=== PATIENT | female | born 1995 | race Caucasian/White ===

== ENCOUNTER 2018-06-21 09:40 | Emergency (ER) | payer OTHER ==
[~2018-06-21] VITALS: Ht 162.6 cm; Wt 78.9 kg
--- OUTSIDE RECORDS SUMMARY | ~2018-06-21 | XMS | Encounter Summary ---
Demographics + + + | Address | [address] [facility] [address] | | | [place] [address] | + + + | Home Phone | | + + + | Preferred Language | Unknown | + + + | Marital Status | Single | + + + | Mosque Affiliation | 1013 | + + + | Race | Unknown | + + + | Ethnic Group | Unknown | + + + Author + + + | Author | [facility] | | | and [place]ana | + + + | Organization | [facility] | | | and [place]ana | + + + | Address | Unknown | + + + | Phone | Unavailable | + + + Support + + + + + | Name | Relationship | Address | Phone | + + + + + | Ritesh Guerra | ECON | [address] | | | | | [place] [address] | | + + + + + | Alyx Montero | ECON | Unknown | | + + + + + | Tae Montero | ECON | Unknown | | + + + + + Care Team Providers + +------+ + | Care Mud Grinder Name | Role | Phone | + +------+ + | No, Physician | PCP | Unavailable | + +------+ + Reason for Visit +--------+ + | Reason | Comments | +--------+ + | Letter | | +--------+ + Encounter Details +--------+ + + + + | Date | Type | Department | Care Team | Description | +--------+ + + + + | 05/12/ | Telephone | [facility] | Jacobo Haq | Letter | | 2018 | | [facility] | MD [address] | | | | | [address] | [address] | | | | | [address], | [place] | | | | | [place] [address] | [address] | | | | | [phone] | [phone] | | | | | | | | +--------+ + + + + Social History + +-------+ +--------+------+ | Tobacco Use | Types | Packs/Day | Years | Date | | | | | Used | | + +-------+ +--------+------+ | Former Smoker | | 1 | 10 | | + +-------+ +--------+------+ + +---+---+---+ | Smokeless Tobacco: | | | | | Never Used | | | | + +---+---+---+ + + +---------+ + | Alcohol Use | Drinks/We | oz/Week | Comments | | | ek | | | + + +---------+ + | No | | | | + + +---------+ + + + + | Sex Assigned at | Date Recorded | | | | + + + | Not on file | | + + + as of this encounter Plan of Treatment +--------+ + + + + | Date | Type | Specialty | Care Team | Description | +--------+ + + + + | 06/27/ | Routine | Obstetrics and | Jacobo Haq | | | 2017 | | Gynecology | MD Rhoda Palacio | | | | | | [address] | | | | | | [place] | | | | | | [address] | | | | | | [phone] | | | | | | | | +--------+ + + + + | 11/25/ | Hospital | Obstetrics | Jacobo Haq | | | 2019 | Encounter | | MD Rhoda Palacio | | | | | | [address] | | | | | | [place] | | | | | | [address] | | | | | | [phone] | | | | | | | | +--------+ + + + + as of this encounter Visit Diagnoses Not on filein this encounter"
--- OUTSIDE RECORDS SUMMARY | ~2018-06-21 | XMS | Encounter Summary ---
Demographics + + + | Address | [address] [facility] [address] | | | [place] [address] | + + + | Home Phone | | + + + | Preferred Language | Unknown | + + + | Marital Status | Single | + + + | Worship Affiliation | 1013 | + + + | Race | Unknown | + + + | Ethnic Group | Unknown | + + + Author + + + | Author | [facility] | | | and Stevenana | + + + | Organization | [facility] | | | and [place]ana [...] [address] | | | | | [place] [address] | | + + + + + | Alyx Reyna | ECON | Unknown | | + + + + + | Tae Reyna | ECON | Unknown | | + + + + + Care Team Providers + +------+ + | Care Director Park Name | Role | Phone | + +------+ + | No, Physician | PCP | Unavailable | + +------+ + Reason for Referral Evaluate & Treat (Routine) +--------+ + + + + + | Status | Reason | Specialty | Diagnoses / | Referred By | Referred To | | | | | Procedures | Contact | Contact | +--------+ + + + + + | Closed | Specialty | | Diagnoses | Severino, | Stew, | | | Services | | , | Jacobo Palacio, | Sharad W, | | | Required | | unspecified | MD [address] | [address] | | | | gestational | [address], | [address] | | | | | age | [address] | [address], | | | | | | [place], [place] | [place] [address] | | | | | | [address] | Phone: | | | | | | Phone: | [phone] | | | | | | [phone] | Fax: | | | | | | Fax: | [phone] | | | | | | [phone] | | +--------+ + + + + + Reason for Visit + + + | Reason | Comments | + + + | Initial | | | Visit | | + + + Encounter Details +--------+ + + + + | Date | Type | Department | Care Team | Description | +--------+ + + + + | 05/10/ | Initial | [facility] | Jacobo Haq | [place]: | | 2018 | | [facility] | [address] | | | | | CL[address] | [address] | | | | | [address], | [place], [place] | | | | | [place] [address] | [address] | | | | | [phone] | [phone] | | | | | | | [...] + + + as of this encounter Last Filed Vital Signs + + + + | Vital Sign | Reading | Time Taken | + + + + | Blood Pressure | 121/76 | 05/10/2018 1605 PDT | + + + + | Pulse | 101 | 05/10/2018 1605 PDT | + + + + | Temperature | - | - | + + + + | Respiratory Rate | 20 | 05/10/2018 1518 PDT | + + + + | Oxygen Saturation | - | - | + + + + | Inhaled Oxygen | - | - | | Concentration | | | + + + + | Weight | 75.8 kg (167 lb) | 05/10/20181517 PDT | + + + + | Height | 162.6 cm (5' 4") | 05/10/20181517 PDT | + + + + | Body Mass Index | 28.67 | 05/10/20181517 PDT | + + + + in this encounter Progress Notes Carolynn Patel RN - 05/10/20181514 PDTUnable to reach pt due to her currently ester ng in rehab. She was informed of her results at her appt last week. 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 in welcome reportedly for 90 days informed pt of risk of malformations and plan mfm usin this encounter Plan of Treatment +--------+ + [...] [place] | | | | | | [address] | | | | | | [phone] | | | | | | | | +--------+ + + + + | 11/25/ | Hospital | Obstetrics | Jacobo Haq | | | 2018 | Encounter | | MD [address] | | | | | | [address] | | | | | | [place] | | | | | | [address] | | | | | | [phone] | | | | | | | | +--------+ + + + + + +--------+ + + | Name | Priori | Associated Diagnoses | Order Schedule | | | ty | | | + +--------+ + + | Perinatology, External - AMB | Routin | , | Ordered: 05/10/2018 | | Referral | e | unspecified | | | | | gestational age | | + +--------+ + + as of this encounter Procedures + +--------+ + + + | Procedure Name | Priori | Date/Time | Associated Diagnosis | Comments | | | ty | | | | + +--------+ + + + | DIAGNOSTIC REPORT - | | 05/12/2018 | | Results for this | | EXTERNAL SCAN | | 0000 PDT | | procedure are in the | | | | | | results section. | + +--------+ + + + | C. TRACHOMATIS AND | Routin | 05/10/2018 | Screening for STD | Results for this | | N. GONORRHOEAE, NAAT | e | 1550 PDT | (sexually | procedure are in the | | ([facility]) | | | transmitted disease) | results section. | + +--------+ + + + | PAP SMEAR | Routin | 05/10/2018 | Screening for | Results for this | | | e | 0000 PDT | cervical cancer | procedure are in the | | | | | | results section. | + +--------+ + + + in this encounter Results Hepatitis C, NAAT, Quant, Reflex (06/10/2018 1547) + + + + + | Component | Value | Ref Range | Performed At | + + + + + | Hepatitis C Ab | NONREACTIVE | | REFERENCE LAB | | | | | [facility] | | | | | [facility] - | | | | | [place] | | | | | [place] | + + + + + | Signal/Cutoff | 0.02Comment: REFERENCE | | REFERENCE LAB | | | RANGE: | | [facility] | | | NONREACTIVE | | [facility] - | | | | | [place] | | | (SIGNAL TO CUTOFF <1.00) | | [place] | | | Test(s) performed | | | | | at: [facility] | | | | | INFECTIOUS | | | | | DISEASE Fritz [place] | | | | | Santy Blunt, | | | | | Medical | | | | | Director [id number] | | | | | [place] | | | | | [facility] | | | | | [place] | | | | | [address] [place] | | | | | #[id number] | | | + + + + + + + | Specimen | + + | Blood | + + + + + | Narrative | Performed At | + + + | Performing Organization Information: Site ID: HEPATITIS C | REFERENCE LAB | | ANTIBODY W/RFX TO HCV RNA,QUANT REAL-TIME PCR Name: | [facility] | | Address: , Director: | [facility]ST[facility] - | | | [place] | | | [place] | + + + + + + + + | Performing | Address | City/State/Zipcode | Phone Number | | Organization | | | | + + + + + | REFERENCE LAB | [address] | [place], [place] | | | [facility] - | | [address] | | | [place] | | | | + + + + + HIV 1 and 2 Ab, Reflex (06/10/2018 1547) + + + + + | Component | Value | Ref Range | Performed At | + + + + + | HIV 1/2 Ab and P24 | Negative | Negative | [facility] | | Ag | | | HOSPITAL | | | | | LABORATORY | + + + + + + + | Specimen | + + | Blood | + + + + + + + | Performing | Address | City/State/Zipcode | Phone Number | | Organization | | | | + + + + + | [facility] | [address] | [place] [address] | [phone] | | HOSPITAL LABORATORY | | | | + + + + + DIAGNOSTIC REPORT - EXTERNAL SCAN (05/12/2018) + + + | Narrative | Performed At | + + + | Ordered by an | | | unspecified provider. | | + + + C. trachomatis and N. gonorrhoeae, NAAT ([facility]) (05/10/2018 1550) + + + + + | Component | Value | Ref Range | Performed At | + + + + + | Chlamydia | Not detected | Not detected | REFERENCE LAB | | trachomatis rRNA PCR | | | [facility] | | | | | [facility] - | | | | | [place] | | | | | [place] | + + + + + | Neisseria | Not detectedComment: | Not detected | REFERENCE LAB | | gonorrhoeae rRNA PCR | This test was performed | | [facility] | | | using the [facility] | | DIAGNOSTICS - | | | COMBO2(R) Assay | | [facility] | | | (GEN-PROBE(R)). The | | [place] | | | analytical performance | | | | | characteristics of this | | | | | assay, when used to test | | | | | SurePath(R) specimens | | | | | have been determined by | | | | | [facility]. @ | | | | | Test Performed By: | | | | | [facility] | | | | | [facility] | | | | | Darryl Smith M.D., | | | | | Ph.D., Laboratory | | | | | Director [id number] | | | | | [facility] | | | | | [place], [place] | | | | | [address] [facility] | | | | | #[id number] | | | + + + + + + + | Specimen | + + | Tissue - Cervix | + + + + + | Narrative | Performed At | + + + | Performing Organization Information: Site ID: [facility]/ | REFERENCE LAB | | N.GONORRHOEAE RNA, TMA, UROGENITAL Name: | [facility] | | Address: , Director: | DIAGNOSTICS - | | | [place] | | | [place] | + + + + + + + + | Performing | Address | City/State/Zipcode | Phone Number | | Organization | | | | + + + + + | REFERENCE LAB | [address] | [place], [place] | | | [facility] - | | [address] | | | [place] | | | | + + + + + Pap Smear (05/10/2018) + + | Specimen | + + | Tissue | + + + + + | Narrative | Performed At | + + + | ORDERING PHYSICIAN: Jacobo Haq MD PATIENT NAME: | [facility] | | SINDHU REYNA GENDER: F : 1995 | INCYTE | | Prior History: No cases found. SPECIMEN(S): Cervical/ | | | Endocervical CLINICAL HISTORY: Routine Pap Smear CYTOLOGIC | | | INTERPRETATION: Negative for Intraepithelial Lesion or Malignancy | | | (See description) Description: Nuclear enlargement without | | | dysplasia is identified. The [place] System For Reporting Cervical | | | Cytology emphasizes the 'negative' nature of this finding. There are | | | no special guidelines or recommended follow-up protocols for reactive | | | cellular changes. TECHNICAL NOTES: Pathologist review has been | | | performed. To improve disease detection, this slide is screened using | | | automated intelligence technology. This specimen was received in a | | | vial of liquid-based fixative and was processed using thin layer Pap | | | technology. SPECIMEN ADEQUACY: Satisfactory for evaluation. | | | Endocervical and/or metaplastic cells present. ORGANISM: | | | Predominance of coccobacilli is present and is suggestive of bacterial | | | vaginosis. ADDITIONAL NOTES: The Pap smear is a screening test | | | designed to aid in the detection of premalignant and malignant | | | conditions of the uterine cervix. It is not a diagnostic procedure and | | | should not be used as the sole means of detecting cervical cancer. | | | Both false-positive and false-negative reports do occur. This | | | document contains private and confidential health information by state | | | and federal law. If you have received in error, please call | | | [phone]. PERFORMING LABORATORY: Technical preparation was | | | performed by [facility], [address] | | | [place] [address] (Track Supervisor: Mando Gilbert D.O.; | | | CLIA#: [id number]). Professional interpretation was performed by | | | [facility], [facility] [address], | | | [place], [place] [address] (Track Supervisor: Eliezer Enriquez MD; CLIA# | | | [id number]). Diagnostician: Kenya BEST ([facility]), [facility] | | | Roll Plugger Diagnostician: Eliezer Enriquez MD Pathologist | | | Electronically Signed 05/13/2018 | | + + + + +---------+ + + | Performing | Address | City/State/Zipcode | Phone Number | | Organization | | | | + +---------+ + + | [facility] | | | | | [facility] | | | | + +---------+ + + in this encounter Visit Diagnoses + + | Diagnosis | + + | Screening for cervical cancer - Primary | + + | Screening for malignant neoplasm of the cervix | + + | Screening for STD (sexually transmitted disease) | + + | Screening examination for venereal disease | + + | , unspecified gestational age | + +
--- OUTSIDE RECORDS SUMMARY | ~2018-06-21 | XMS | Encounter Summary ---
Demographics + + + | Address | [address] [facility] [address] | | | [place] [address] | + + + | Home Phone | | + + + | Preferred Language | Unknown | + + + | Marital Status | Single | + + + | Congregational Affiliation | 1013 | + + + | Race | Unknown | + + + | Ethnic Group | Unknown | + + + Author + + + | Author | [facility] | | | and [place] | + + + | Organization | [facility] | | | and [place] | + + + | Address | Unknown | + + + | Phone | Unavailable | + + + Support + + + + + | Name | Relationship | Address | Phone | + + + + + | Ritesh Guerra | ECON | [address] | | | | | [place] [address] | | + + + + + | Alyx Montero | ECON | Unknown | | + + + + + | Tae Montero | ECON | Unknown | | + + + + + Care Team Providers + +------+ + | Care Neuro Ophthalmologist Name | Role | Phone | + +------+ + | No, Physician | PCP | Unavailable | + +------+ + Reason for Visit + + + | Reason | Comments | + + + | Appointment | | + + + Encounter Details +--------+ + + + + | Date | Type | Department | Care Team | Description | +--------+ + + + + | 06/13/ | Telephone | [facility] | Penelope Montenegro, | Appointment | | 2018 | | [facility] | RN | | | | | CLINIC [address] | | | | | | DR [place], | | | | | | [place] [address] | | | | | | [phone] | | | +--------+ + + + [...] [place] | | | | | | [address] | | | | | | [phone] | | | | | | | | +--------+ + + + + | 11/25/ | Hospital | Obstetrics | Jacobo Haq | | | 2019 | Encounter | | MD Rhoda Palacio | | | | | | [address] | | | | | | [place] | | | | | | [address] | | | | | | [phone] | | | | | | | | +--------+ + + + + as of this encounter Visit Diagnoses Not on filein this encounter"
--- OUTSIDE RECORDS SUMMARY | ~2018-06-21 | XMS | Clinical Summary ---
Demographics + + + | Address | [address] [facility] [address] | | | [place] [address] | + + + | Home Phone | | + + + | Preferred Language | Unknown | + + + | Marital Status | Single | + + + | Zoroastrianism Affiliation | 1013 | + + + | Race | Unknown | + + + | Ethnic Group | Unknown | + + + Author + + + | Author | [facility] | | | and [place] | + + + | Organization | [facility] | | | and [place] [...] 2LA | | | | | [place] [address] | | + + + + + | Alyx Reyna | ECON | Unknown | | + + + + + | Tae Reyna | ECON | Unknown | | + + + + + Care Team Providers + +------+ + | Care Maxillofacial Prosthetics Dentist Name | Role | Phone | + +------+ + | No Physician | PP | Unavailable | + +------+ + Allergies + + + + + + | Active Allergy | Reactions | Severity | Noted | Comments | | | | | Date | | + + + + + + | Codeine | Nausea Only | | 07/15/20 | "makes me sick and | | | | | 15 | dizzy" | + + + + + + Current Medications + + +-------+---------+------+------+-------+ | Prescription | Sig. | Disp. | Refills | Star | End | Statu | | | | | | t | Date | s | | | | | | Date | | | + + +-------+---------+------+------+-------+ | MV-Min-Fe | Take by mouth. | | | 08/0 | | Activ | | Fum-FA-DHA | | | | 10/09 | | e | | ( 1 PO) | | | | 15 | | | + + +-------+---------+------+------+-------+ Active Problems + + + | Problem | Noted Date | + + + | | 05/18/2018 | + + + + + | Overview: Formatting of this note may be different from the | | original. Blood type Rhogam RAMBO/NIPT Flu Tdap | | Problems: | |Blood type | |Rhogam | |RAMBO/NIPT | |Flu | |Tdap | | | |Problems: | + + + + + + | Currently | Estimated Date of Delivery | Comments | + + + + | Yes | 11/25/2018 | Based on last | | | | menstrual period of | | | | 02/18/2018 (Exact | | | | Date) | + + + + Encounters +--------+ + + + + | Date | Type | Specialty | Care Team | Description | +--------+ + + + + | 06/20/ | Telephone | | Penelope Montenegro, | Release of | | 2017 | | | RN | Information | +--------+ + + + + | 06/15/ | Telephone | | Jacobo Haq | Referral | | 2017 | | | MD Hakeem | | +--------+ + + + + | 06/13/ | Telephone | | Penelope Montenegro | Appointment | | 2017 | | | RN | | +--------+ + + + + | 06/13/ | Telephone | | Jacobo Haq | Advice Only | 2017 | | | MD Hakeem | | +--------+ + + + + | 06/10/ | Routine | | Jacobo Haq | GA: 16w0d | 2017 | | | MD Hakeem | | +--------+ + + + | 05/12/ | Telephone | | Jacobo Hqa | Letter | 2017 | | | MD Hakeem | | +--------+ + + + + | 05/10/ | Initial | | Jacobo Haq | GA: 11 | 2017 | | | MD Hakeem | | +--------+ + + + + from Last 3 Months Social History + +-------+ +--------+------+ | Tobacco [...] + + +---------+ + + + + + | Currently | Estimated Date of Delivery | Comments | + + + + | Yes | 11/25/2018 | Based on last | | | | menstrual period of | | | | 02/18/2018 (Exact | | | | Date) | + + + + + + + | Sex Assigned at | Date Recorded | | | | + + + | Not on file | | + + + Last Filed Vital Signs + + + + | Vital Sign | Reading | Time Taken | + + + + | Blood Pressure | 140/78 | 06/10/2018 1412 PDT | + + + + | Pulse | 101 | 05/10/2018 1605 PDT | + + + + | Temperature | 36.2 C (97.2 F) | 07/15/2017124 PDT | + + + + | Respiratory Rate | 20 | 05/10/2018 1518 PDT | + + + + | Oxygen Saturation | 100% | 07/15/2017124 PDT | + + + + | Inhaled Oxygen | - | - | | Concentration | | | + + + + | Weight | 77.6 kg (171 lb) | 06/10/20181411 PDT | + + + + | Height | 162.6 cm (5' 4") | 05/10/2018 1518 PDT | + + + + | Body Mass Index | 29.35 | 06/10/20181411 PDT | + + + + Plan of Treatment +--------+ + + + + | Date | Type | Specialty | Care Team | Description | +--------+ + + + + | 06/27/ | Routine | | Jacobo Haq | | | 2018 | | | MD Hakeem [address] | | | | | | [address] | | | | | | [place], [place] | | | | | | [address] | | | | | | [phone] | | | | | | | | +--------+ + + + + | 11/25/ | Hospital | | Jacobo Haq | | | 2019 | Encounter | | MD Hakeem [address] | | | | | | [address] | | | | | | [place] | | | | | | [address] | | | | | | [phone] | | | | | | | | +--------+ + + + + + + + + + | Health Maintenance | Due Date | Last Done | Comments | + + + + + | Vaccine: Influenza | | 08/10/2016 | | | (#1) | 8 | | | + + + + + | Cervical Cancer | | 05/10/2018, 05/15/2015 | | | Screening (Pap) | 1 | | | + + + + + | Vaccine: | | 12/23/2016, 10/17/2015 | | | Dtap/Tdap/Td (2 - | 7 | | | | Td) | | | | + + + + + Procedures + +--------+ + + + | Procedure Name | Priori | Date/Time | Associated Diagnosis | Comments | | | ty | | | | + +--------+ + + + | ANTIBODY SCREEN | Routin | 06/10/2018 | , | Results for this | | | e | 1547 PDT | unspecified | procedure are in the | | | | | gestational age | results section. | + +--------+ + + + | ABO RH | Routin | 06/10/2018 | , | Results for this | | | e | 1547 PDT | unspecified | procedure are in the | | | | | gestational age | results section. | + +--------+ + + + | CBC W/AUTO | Routin | 06/10/2018 | , | Results for this | | DIFFERENTIAL | e | 1547 PDT | unspecified | procedure are in the | | | | | gestational age | results section. | + +--------+ + + + | HEPATITIS B SURFACE | Routin | 06/10/2018 | , | Results for this | | AG | e | 1547 PDT | unspecified | procedure are in the | | | | | gestational age | results section. | + +--------+ + + + | RUBELLA AB, IGG | Routin | 06/10/2018 | , | Results for this | | | e | 1547 PDT | unspecified | procedure are in the | | | | | gestational age | results section. | + +--------+ + + + | TREPONEMA PALLIDUM | Routin | 06/10/2018 | , | Results for this | | AB, REFLEX | e | 1547 PDT | unspecified | procedure are in the | | | | | gestational age | results section. | + +--------+ + + + | HEPATITIS C, NAAT, | Routin | 06/10/2018 | , | Results for this | | QUANT, REFLEX | e | 1547 PDT | unspecified | procedure are in the | | | | | gestational age | results section. | + +--------+ + + + | HIV 1 AND 2 AB, | Routin | 06/10/2018 | , | Results for this | | REFLEX | e | 1547 PDT | unspecified | procedure are in the | | | | | gestational age | results section. | + +--------+ + + + | OBSTETRICS PANEL | Routin | 06/10/2018 | , | Results for this | | | e | 1547 PDT | unspecified | procedure are in the | | | | | gestational age | results section. | + +--------+ + [...] section. | + +--------+ + + + from Last 3 Months Results Treponema Pallidum Ab, Reflex (06/10/2018 1547) + + + + + | Component | Value | Ref Range | Performed At | + + + + + | Treponema Pallidum | Non Reactive | Non Reactive | [facility] | | Ab, Qual | | | HOSPITAL | | | | | LABORATORY | + + + + + + + | Specimen | + + | Blood | + + + + + + + | Performing | Address | City/State/Zipcode | Phone Number | | Organization | | | | + + + + + | [facility] | [address] | [place] [address] | [phone] | | HOSPITAL LABORATORY | | | | + + + + + Hepatitis C, NAAT, Quant, Reflex (06/10/2018 1547) [...] Medical | | | | | Director [id number] | | | | | [facility] | | | | | [facility] | | | | | [place] | | | | | [address] [place] | | | | | #[id number] | | | + + + + [...] + + + | REFERENCE LAB | [address] | [place], [place] | | | [facility] - | | [address] | | | [place] | | | | + + + + + CBC w/ Auto Differential (06/10/2018 1547) + + + + + | Component | Value | Ref Range | Performed At | + + + + + | WBC | 13.0 (H) | 4.3 - 10.4 K/uL | [facility] | | | | | [facility]OSP[facility] | | | | | LABORATORY | + + + + + | RBC | 4.42 | 4.12 - 5.30 M/uL | [facility] | | | | | [facility] | | | | | LABORATORY | + + + + + | Hgb | 12.2 (L) | 12.4 - 15.7 g/dL | [facility] | | | | | [facility]OSP[facility] | | | | | LABORATORY | + + + + + | Hct | 36.1 (L) | 37.7 - 47.0 % | [facility] | | | | | [facility] | | | | | LABORATORY | + + + + + | MCV | 81.7 (L) | 82.0 - 97.0 fL | [facility] | | | | | [facility] | | | | | LABORATORY | + + + + + | MCH | 27.6 | 27.1 - 32.3 pg | [facility] | | | | | [facility] | | | | | LABORATORY | + + + + + | MCHC | 33.8 | 32.0 - 36.9 g/dL | [facility] | | | | | [facility] | | | | | LABORATORY | + + + + + | RDW-CV | 14.4 | 0.0 - 17.0 % | [facility] | | | | | [facility] | | | | | LABORATORY | + + + + + | Platelet Count | 283 | 150 - 450 K/uL | [facility] | | | | | [facility] | | | | | LABORATORY | + + + + + | MPV | 9.6 | 9.4 - 12.3 fL | [facility] | | | | | [facility] | | | | | LABORATORY | + + + + + | % Neutrophils | 78.0 (H) | 42.0 - 76.0 % | [facility] | | | | | [facility] | | | | | LABORATORY | + + + + + | % Lymphocytes | 14.9 (L) | 20.0 - 40.0 % | [facility] | | | | | [facility] | | | | | LABORATORY | + + + + + | % Monocytes | 5.5 | 3.0 - 13.0 % | [facility] | | | | | [facility] | | | | | LABORATORY | + + + + + | % Eosinophils | 1.0 | 0.0 - 7.0 % | [facility] | | | | | [facility] | | | | | LABORATORY | + + + + + | % Basophils | 0.2 | 0.0 - 2.0 % | [facility] | | | | | [facility] | | | | | LABORATORY | + + + + + | % Immature | 0.4 | 0.0 - 0.5 % | [facility] | | granulocytes | | | HOSPITAL | | | | | LABORATORY | + + + + + | Absolute Neutrophils | 10.14 (H) | 2.50 - 8.50 K/uL | [facility] | | | | | [facility] | | | | | LABORATORY | + + + + + | Absolute Lymphocytes | 1.93 | 1.00 - 3.80 K/uL | [facility] | | | | | [facility] | | | | | LABORATORY | + + + + + | Absolute Monocytes | 0.72 | 0.00 - 0.80 K/uL | [facility] | | | | | [facility] | | | | | LABORATORY | + + + + + | Absolute Eosinophils | 0.13 | 0.00 - 0.70 K/uL | [facility] | | | | | [facility] | | | | | LABORATORY | + + + + + | Absolute Basophils | 0.02 | 0.00 - 0.20 K/uL | [facility] | | | | | [facility] | | | | | LABORATORY | + + + + + | Absolute Imm. | 0.05 | 0.00 - 0.15 K/UL | [facility] | | Granulocytes | | | HOSPITAL | | | | | LABORATORY | + + + + + | nRBC | 0 | 0 - 0 per 100 WBC's | [facility] | | | | | [facility]OSP[facility] | | | | | LABORATORY | + + + + + | NRBC ABS | 0.00 | 0.00 - 0.01 K/UL | [facility] | | | | | HOSP[facility] | | | | | LABORATORY | + + + + + + + | Specimen | + + | Blood | + + + + + + + | Performing | Address | City/State/Zipcode | Phone Number | | Organization | | | | + + + + + | [facility] | [address] | [place] [address] | [phone] | | HOSPITAL LABORATORY | | | | + + + + + ABO Rh (06/10/2018 1547) + + + + + | Component | Value | Ref Range | Performed At | + + + + + | ABO | B | | [facility] | | | | | HOSP[facility] BLOOD | | | | | BANK | + + + + + | Rh Type | Positive | | [facility] | | | | | HOSPITAL BLOOD | | | | | BANK | + + + + + + + | Specimen | + + | Blood | + + + + + + + | Performing | Address | City/State/Zipcode | Phone Number | | Organization | | | | + + + + + | [facility] | [address] | [place] [address] | [phone] | | HOSPITAL BLOOD BANK | | | | + + + + + Rubella Ab, IgG (06/10/2018 1547) + + + + + | Component | Value | Ref Range | Performed At | + + + + + | Rubella IgG Ab, | 54.9Comment: < | IU/mL | [facility] | | Quant | 5.0Presumed NOT | | HOSPITAL | | | IMMUNE5.0 - 9.9 | | LABORATORY | | | Considered Equivocal> | | | | | 10.0Considered Presumed | | | | | Immune Antibody | | | | | levels >9.99 WHO | | | | | IU/mL are considered | | | | | to be an indicator of | | | | | positive immune status. | | | + + + + + | Rubella IgG Ab, | Presumed Immune | Presumed Immune | [facility] | | Screen | | | HOSPITAL | | | | | LABORATORY | + + + + + + + | Specimen | + + | Blood | + + + + + + + | Performing | Address | City/State/Zipcode | Phone Number | | Organization | | | | + + + + + | [facility] | [address] | [place] [address] | [phone] | | HOSPITAL LABORATORY | | | | + + + + + HIV 1 and 2 Ab, Reflex (06/10/2018 1547) + + + + + | Component | Value | Ref Range | Performed At | + + + + + | HIV 1/2 Ab and P24 | Negative | Negative | [facility] | | Ag | | | HOSPITAL | | | | | LABORATORY | + + + + + + + | Specimen | + + | Blood | + + + + + + + | Performing | Address | City/State/Zipcode | Phone Number | | Organization | | | | + + + + + | [facility] | [address] | [place] [address] | [phone] | | HOSPITAL LABORATORY | | | | + + + + + Hepatitis B Surface Ag (06/10/2018 1547) + + + + + | Component | Value | Ref Range | Performed At | + + + + + | Hepatitis B Surface | Non Reactive | Non Reactive | [facility] | | Ag | | | HOSPITAL | | | | | LABORATORY | + + + + + + + | Specimen | + + | Blood | + + + + + + + | Performing | Address | City/State/Zipcode | Phone Number | | Organization | | | | + + + + + | [facility] | [address] | [place] [address] | [phone] | | HOSPITAL LABORATORY | | | | + + + + + Antibody Screen (06/10/2018 1547) + + + + + | Component | Value | Ref Range | Performed At | + + + + + | Antibody Screen | Negative | | [facility] | | | | | HOSPITAL BLOOD | | | | | BANK | + + + + + + + | Specimen | + + | Blood | + + + + + + + | Performing | Address | City/State/Zipcode | Phone Number | | Organization | | | | + + + + + | [facility] | [address] | [place] [address] | [phone] | | HOSPITAL BLOOD BANK | | | | + + + [...] | [facility] | | | using the [employer] | | [facility] - | | | [...] determined by | | | | | [facility]. @ | | | | | Test Performed By: | | | | | [facility] | | | | | [facility] | | | | | Darryl Smith M.D., | | | | | Ph.D., Laboratory | | | | | Director [address] | | | | | [facility] | | | | | [place], [place] | | | | | [address] CLIA | | | | | #[id number] | | | + + + + [...] + + + | REFERENCE LAB | [address] | [place], [place] | | | [facility] - | | [address] | | | [place] | | | | + + + + + Pap Smear (05/10/2018) + + | Specimen | + + | Tissue | + + + + + | Narrative | Performed At | + + + | ORDERING PHYSICIAN: Jacobo Haq MD PATIENT NAME: | [facility] | | SINDHU REYNA GENDER: F : 1995 | [place] | | Prior History: No cases found. SPECIMEN(S): Cervical/ | | | Endocervical CLINICAL HISTORY: Routine Pap Smear CYTOLOGIC | | | INTERPRETATION: Negative for Intraepithelial Lesion or Malignancy | | | (See description) Description: Nuclear enlargement without | | | dysplasia is identified. [facility] For Reporting Cervical | | | [...] in error, please call | | | [phone]. PERFORMING LABORATORY: Technical preparation was | | | performed by [facility], [address] | | | [place] [address] (Security System Installer: Mando Gilbert D.O.; | | | CLIA#: [id number]). Professional interpretation was performed by | | | [facility], [facility] [address], | | | [place], [place] [address] (Security System Installer: Eliezer Enriquez MD; CLIA# | | | [id number]). Diagnostician: Kenya BEST (ASCP), [facility] | | | Paleologist Diagnostician: Eliezer Enriquez MD Pathologist | | | Electronically Signed 05/13/2018 | | + + + + +---------+ + + | Performing | Address | City/State[facility] | Phone Number | | Organization | | | | + +---------+ + + | [facility] | | | | | [place] | | | | + +---------+ + + from Last 3 Months Insurance + +--------+ +--------+ +---------+ | Payer | Benefi | Subscriber | Type | Phone | Address | | | t Plan | ID | | | | | | / | | | | | | | Group | | | | | + +--------+ +--------+ +---------+ | [place] | MEDICA | [id number] | Medica | [phone] | | | [place] | | id | [phone] | | | | PLUS | | | | | + +--------+ +--------+ +---------+ + +--------+ +--------+ + + | Guarantor Name | Accoun | Relation to | Date | Phone | Billing Address | | | t Type | Patient | of | | | | | | | | | | + +--------+ +--------+ + + | SINDHU REYNA | Person | Self [birth year] Home: | [address] [facility] [address] | | M | al/Fam | | 1994 | [phone] | [place] [address] | | | kathi | | | [phone] | | + +--------+ +--------+ + +
--- OUTSIDE RECORDS SUMMARY | ~2018-06-21 | XMS | Encounter Summary ---
Demographics + + + | Address | [address] [facility] [address] | | | [place] [address] | + + + | Home Phone | | + + + | Preferred Language | Unknown | + + + | Marital Status | Single | + + + | Sabianist Affiliation | 1013 | + + + | Race | Unknown | + + + | Ethnic Group | Unknown | + + + Author + + + | Author | [facility] | | | and [place] | + + + | Organization | [facility] | | | and [place] [...] 2LA | | | | | [place] [address] | | + + + + + | Alyx Montero | ECON | Unknown | | + + + + + | Tae Montero | ECON | Unknown | | + + + + + Care Team Providers + +------+ + | Care Shoe Reconditioner Name | Role | Phone | + +------+ + | No, Physician | PCP | Unavailable | + +------+ + Reason for Visit + + + | Reason | Comments | + + + | Release of | | | Information | | + + + Encounter Details +--------+ + + + + | Date | Type | Department | Care Team | Description | +--------+ + + + + | 06/20/ | Telephone | [facility] | Penelope Montenegro, | Release of | | 2018 | | [facility] | RN | Information | | | | CLINIC [address] | | | | | | [address] [place], | | | | | | [place] [address] | | | | | | [phone] | | | +--------+ + + + [...] [place] | | | | | | [address] | | | | | | [phone] | | | | | | | | +--------+ + + + + | 11/25/ | Hospital | Obstetrics | Jacobo Haq | | | 2018 | Encounter | | MD Rhoda Palacio | | | | | | [address] | | | | | | [place] | | | | | | [address] | | | | | | [phone] | | | | | | | | +--------+ + + + + as of this encounter Visit Diagnoses Not on filein this encounter"
--- OUTSIDE RECORDS SUMMARY | ~2018-06-21 | XMS | Encounter Summary ---
Demographics + + + | Address | [address] [facility] [address] | | | [place] [address] | + + + | Home Phone | | + + + | Preferred Language | Unknown | + + + | Marital Status | Single | + + + | Tenriism Affiliation | 1013 | + + + | Race | Unknown | + + + | Ethnic Group | Unknown | + + + Author + + + | Author | [facility] | | | and [place] | + + + | Organization | [facility] | | | and [...] 2LA | | | | | [place] [address] | | + + + + + | Alyx Reyna | ECON | Unknown | | + + + + + | Tae Reyna | ECON | Unknown | | + + + + + Care Team Providers + +------+ + | Care Sole Molder Name | Role | Phone | + [...] age | [address] | [address], | | | | | | [place], [place] | [place] [address] | | | | | | [address] | Phone: | | | | | | Phone: | [phone] | | | | | | [phone] | Fax: | | | | | | Fax: | [phone] | | | | | | [phone] | | +--------+ + + + + [...] | [place]: | | 2018 | | [facility] | MD Hakeem [address] | | | | | CL[address]IC [address] | [address] | | | | | [address] [place], | [place], [place] | | | | | [place] [address] | [address] | | | | | [phone] | [phone] | | | | | | | [...] is now in in pt treatment in [place] reportedly for 90 days informed pt of [...] Palacio | | | | | | [address] | | | | | | [place] | | | | | | [address] | | | | | | [phone] | | | | | | | | +--------+ + + + + | 11/25/ | Hospital | Obstetrics | Jacobo Haq | | | 2018 | Encounter | | MD Hakeem [address] | | | | | | [address] | | | | | | [place] | | | | | | [address] | | | | | | [phone] | | | | | | | [...] Medical | | | | | Director [address] | | | | | [address] | | | | | [facility] | | | | | [place] | | | | | [address] [place] | | | | | #[id number] | | | + + + + [...] + + + | REFERENCE LAB | [address] | [place], [place] | | | [facility] - | | [address] | | | [place] | | [...] + + | [facility] | [address] | [place] [address] | [phone] | | HOSPITAL LABORATORY | | | [...] determined by | | | | | [facility]. @ | | | | | Test Performed By: | | | | | [facility] | | | | | [facility] | | | | | Darryl Smith M.D., | | | | | Ph.D., Laboratory | | | | | Director [address] | | | | | [facility] | | | | | [place], [place] | | | | | [address] [facility] | | | | | #[id number] | | | + + + + [...] + + + | REFERENCE LAB | [address] [facility] [address] | [place], [place] | | | [facility] - | | [address] | | | [place] | | | | + + + + + Pap Smear (05/10/2018) + + | Specimen | + + | Tissue | + + + + + | Narrative | Performed At | + + + | ORDERING PHYSICIAN: Jacobo Haq MD PATIENT NAME: | [facility] | | SINDHU REYNA GENDER: F : 1995 | [place] | | Prior History: No cases found. SPECIMEN(S): Cervical/ | | | Endocervical CLINICAL HISTORY: Routine Pap Smear CYTOLOGIC | | | INTERPRETATION: Negative for Intraepithelial Lesion or Malignancy | | | (See description) Description: Nuclear enlargement without | | | dysplasia is identified. The [facility] System For Reporting Cervical | | | [...] in error, please call | | | [phone]. PERFORMING LABORATORY: Technical preparation was | | | performed by [facility], [address] [facility] | | | [place] [address] (It Intern: Mando Gilbert D.O.; | | | CLIA#: [id number]). Professional interpretation was performed by | | | [facility], [facility] [address], | | | [place], [place] [address] (It Intern: Eliezer Enriquez MD; CLIA# | | | [id number]). Diagnostician: Kenya BEST ([facility] | | | Foundry Laborer Coreroom Diagnostician: Eliezer Enriquez MD Pathologist | | | Electronically Signed 05/13/2018 | | + + + + +---------+ + + | Performing | Address | City/State/Zipcode | Phone Number | | Organization | | | | + +---------+ + + | [facility] | | | | | [facility] | | | | + +---------+ + [...]
--- OUTSIDE RECORDS SUMMARY | ~2018-06-21 | XMS | Encounter Summary ---
Demographics + + + | Address | [address] | | | [place] [address] | + + + | Home Phone | | + + + | Preferred Language | Unknown | + + + | Marital Status | Single | + + + | Congregational Affiliation | 1013 | + + + | Race | Unknown | + + + | Ethnic Group | Unknown | + + + Author + + + | Author | [facility] | | | and Stevenana | + + + | Organization | [facility] | | | and Stevenana [...] 2LA | | | | | [place] [address] | | + + + + + | Alyx Montero | ECON | Unknown | | + + + + + | Tae Montero | ECON | Unknown | | + + + + + Care Team Providers + +------+ + | Care President [place] Name | Role | Phone | + +------+ + | No, Physician | PCP | Unavailable | + +------+ + Reason for Visit + + + | Reason | Comments | + + + | Routine | | | Visit | | + + + Encounter Details +--------+ + + + + | Date | Type | Department | Care Team | Description | +--------+ + + + + | 06/10/ | Routine | [facility] [facility] | Jacobo Haq | GA: 160d | | 2017 | | [facility] | MD [address] | | | | | [address] | [address] | | | | | [address], | [facility], [place] | | | | | [place] [address] | [address] | | | | | [phone] | [phone] | | | | | | | [...] + + + + | Pulse | - | - | + + + + | Temperature | - | - | + + + + | Respiratory Rate | - | - | + + + + | Oxygen Saturation | - | - | + + + + | Inhaled Oxygen | - | - | | Concentration | | | + + + + | Weight | 77.6 kg (171 lb) | 06/10/20181411 PDT | + + + + | Height | - | - | + + + + | Body Mass Index | 29.35 | 06/10/20181411 PDT | + + + + in this encounter Progress Notes Jacobo Haq MD - 06/10/2018 1430 PDTPt is inpatient in [facility]; will have bloodwork done today; quad ordered; cf declined; [facility] needs transportationin this encounter Plan of Treatment +--------+ + + + + | Date | Type | Specialty | Care Team | Description | +--------+ + + + + | 06/27/ | Routine | Obstetrics and | Jacobo Haq | | | 2018 | | Gynecology | MD Rhoda Palacio | | | | | | [address] | | | | | | [place], [place] | | | | | | [address] | | | | | | [phone] | | | | | | | | +--------+ + + + + | 11/25/ | Hospital | Obstetrics | Jacobo Haq | | | 2019 | Encounter | | MD [address] | | | | | | [address] | | | | | | [place], [place] | | | | | | [address] | | | | | | [phone] | | | | | | | | +--------+ + + + + + +--------+ + + | Name | Priori | Associated Diagnoses | Date/Time | | | ty | | | + +--------+ + + | Quad Screen Maternal, Serum | Routin | , | 06/10/2018 1547 PDT | | | e | unspecified | | | | | gestational age | | + +--------+ + + + +--------+ + + | Name | Priori | Associated Diagnoses | Order Schedule | | | ty | | | + +--------+ + + | Quad Screen Maternal, Serum | Routin | , | 1 Occurrences | | | e | unspecified | starting 06/10/2018 | | | | gestational age | until 06/10/2019 | + +--------+ + + as of this encounter Visit Diagnoses + + | Diagnosis | + + | , unspecified gestational age - Primary | + +"
--- OUTSIDE RECORDS SUMMARY | ~2018-06-21 | XMS | Encounter Summary ---
Demographics + + + | Address | [address] | | | [place] [address] | + + + | Home Phone | | + + + | Preferred Language | Unknown | + + + | Marital Status | Single | + + + | Pentecostalism Affiliation | 1013 | + + + | Race | Unknown | + + + | Ethnic Group | Unknown | + + + Author + + + | Author | [facility] | | | and Stevenana | + + + | Organization | [facility] | | | and Stevenana [...] 2LA | | | | | [place] [address] | | + + + + + | Alyx Montero | ECON | Unknown | | + + + + + | Tae Montero | ECON | Unknown | | + + + + + Care Team Providers + +------+ + | Care Sustainability Coach Name | Role | Phone | + +------+ + | No, Physician | PCP | Unavailable | + +------+ + Reason for Visit + + + | Reason | Comments | + + + | Advice Only | | + + + Encounter Details +--------+ + + + + | Date | Type | Department | Care Team | Description | +--------+ + + + + | 06/13/ | Telephone | [facility] [facility] | Jacobo Haq | Advice Only | | 2018 | | [facility] | MD [address] | | | | | [address] | [address] | | | | | [address], | [place], [place] | | | | | [place] [address] | [address] | | | | | [phone] | | | | | | | [...] [place] | | | | | | [address] | | | | | | [phone] | | | | | | | | +--------+ + + + + | 11/25/ | Hospital | Obstetrics | Jacobo Haq | | | 2019 | Encounter | | MD [address] | | | | | | [address] | | | | | | [place] | | | | | | [address] | | | | | | [phone] | | | | | | | | +--------+ + + + + as of this encounter Visit Diagnoses Not on filein this encounter"
--- OUTSIDE RECORDS SUMMARY | ~2018-06-21 | XMS | Encounter Summary ---
Demographics + + + | Address | [address] [facility] [address] | | | [place] [address] | + + + | Home Phone | | + + + | Preferred Language | Unknown | + + + | Marital Status | Single | + + + | Catholic Affiliation | 1013 | + + + | Race | Unknown | + + + | Ethnic Group | Unknown | + + + Author + + + | Author | [facility] | | | and Stevenana | + + + | Organization | [facility] | | | and [...] 2LA | | | | | [place] [address] | | + + + + + | Alyx Montero | ECON | Unknown | | + + + + + | Tae Montero | ECON | Unknown | | + + + + + Care Team Providers + +------+ + | Care Spinner Frame Name | Role | Phone | + [...] | Letter | | 2018 | | [facility] | MD [address] | | | | | [address] | [address] | | | | | [address], | [place] | | | | | [place] [address] | [address] | | | | | [phone] | | | | | | | [...] [place] | | | | | | [address] | | | | | | [phone] | | | | | | | | +--------+ + + + + | 11/25/ | Hospital | Obstetrics | Jacobo Haq | | | 2019 | Encounter | | MD Rhoda Palacio | | | | | | [address] | | | | | | [place] | | | | | | [address] | | | | | | [phone] | | | | | | | | +--------+ + + + + as of this encounter Visit Diagnoses Not on filein this encounter"
--- OUTSIDE RECORDS SUMMARY | ~2018-06-21 | XMS | Encounter Summary ---
Demographics + + + | Address | [address] [facility] [address] | | | [place] [address] | + + + | Home Phone | | + + + | Preferred Language | Unknown | + + + | Marital Status | Single | + + + | Hindu Affiliation | 1013 | + + + | Race | Unknown | + + + | Ethnic Group | Unknown | + + + Author + + + | Author | [facility] | | | and Stevenana | + + + | Organization | [facility] | | | and Stevenana [...] 2LA | | | | | [place] [address] | | + + + + + | Alyx Montero | ECON | Unknown | | + + + + + | Tae Montero | ECON | Unknown | | + + + + + Care Team Providers + +------+ + | Care Signal Timer Name | Role | Phone | + [...] GA: 160d | | 2017 | | [facility] | [address] | | | | | [address] | [address] | | | | | [address], | [facility], [place] | | | | | [place] [address] | [address] | | | | | [phone] | [phone] | | | | | | | [...] - 06/10/2018 1430 PDTPt [facility] inpatient [facility]; will have bloodwork done today; quad ordered; [facility] needs transportationin this encounter Plan [...] [place] | | | | | | [address] | | | | | | [phone] | | | | | | | | +--------+ + + + + | 11/25/ | Hospital | Obstetrics | Jacobo Haq | | | 2019 | Encounter | | MD [address] | | | | | | [address] | | | | | | [place], [place] | | | | | | [address] | | | | | | [phone] | | | | | | | [...]
--- OUTSIDE RECORDS SUMMARY | ~2018-06-21 | XMS | Encounter Summary ---
Demographics + + + | Address | [address] [facility] [address] | | | [place] [address] | + + + | Home Phone | | + + + | Preferred Language | Unknown | + + + | Marital Status | Single | + + + | Faith Affiliation | 1013 | + + + | Race | Unknown | + + + | Ethnic Group | Unknown | + + + Author + + + | Author | [facility] | | | and Stevenana | + + + | Organization | [facility] | | | and Stevenana [...] 2LA | | | | | [place] [address] | | + + + + + | Alyx Montero | ECON | Unknown | | + + + + + | Tae Montero | ECON | Unknown | | + + + + + Care Team Providers + +------+ + | Care Geriatric Personal Care Aide Name | Role | Phone | + [...] Release of | | 2018 | | [facility] | RN | Information | | | | CLIN[address] | | | | | | [address] [place], | | | | | | [place] [address] | | | | | | [phone] | | | +--------+ + + + [...] [place] | | | | | | [address] | | | | | | [phone] | | | | | | | | +--------+ + + + + | 11/25/ | Hospital | Obstetrics | Jacobo Haq | | | 2018 | Encounter | | MD Rhoda Palacio | | | | | | [address] | | | | | | [place] | | | | | | [address] | | | | | | [phone] | | | | | | | | +--------+ + + + + as of this encounter Visit Diagnoses Not on filein this encounter"
--- OUTSIDE RECORDS SUMMARY | ~2018-06-21 | XMS | Encounter Summary ---
Demographics + + + | Address | [address] [facility] [address] | | | [place] [address] | + + + | Home Phone | | + + + | Preferred Language | Unknown | + + + | Marital Status | Single | + + + | Hoahaoism Affiliation | 1013 | + + + | Race | Unknown | + + + | Ethnic Group | Unknown | + + + Author + + + | Author | [facility] | | | and Stevenana | + + + | Organization | [facility] | | | and Stevenana [...] 2LA | | | | | [place] [address] | | + + + + + | Alyx Montero | ECON | Unknown | | + + + + + | Tae Montero | ECON | Unknown | | + + + + + Care Team Providers + +------+ + | Care Bowling Ball Assembler Name | Role | Phone | + [...] | Appointment | | 2018 | | [facility] | RN | | | | | CLIN[address] | | | | | | DR [place], | | | | | | [place] [address] | | | | | | [phone] | | | +--------+ + + + [...] [place] | | | | | | [address] | | | | | | [phone] | | | | | | | | +--------+ + + + + | 11/25/ | Hospital | Obstetrics | Jacobo Haq | | | 2019 | Encounter | | MD Rhoda Palacio | | | | | | [address] | | | | | | [place] | | | | | | [address] | | | | | | [phone] | | | | | | | | +--------+ + + + + as of this encounter Visit Diagnoses Not on filein this encounter"
--- OUTSIDE RECORDS SUMMARY | ~2018-06-21 | XMS | Clinical Summary ---
Demographics + + + | Address | [address] [facility] [address] | | | [place] [address] | + + + | Home Phone | | + + + | Preferred Language | Unknown | + + + | Marital Status | Single | + + + | Sabianist Affiliation | 1013 | + + + | Race | Unknown | + + + | Ethnic Group | Unknown | + + + Author + + + | Author | [facility] | | | and Stevenana | + + + | Organization | [facility] | | | and Stevenana [...] 2LA | | | | | [place] [address] | | + + + + + | Alyx Reyna | ECON | Unknown | | + + + + + | Tae Reyna | ECON | Unknown | | + + + + + Care Team Providers + +------+ + | Care Load Checker Name | Role | Phone | + [...] | 05/12/ | Telephone | | Jacobo Haq | Letter | 2017 | | | [...] [place] | | | | | | [address] | | | | | | [phone] | | | | | | | | +--------+ + + + + | 11/25/ | Hospital | | Jacobo Haq | | | 2019 | Encounter | | MD [address] | | | | | | [address] | | | | | | [place] | | | | | | [address] | | | | | | [phone] | | | | | | | [...] + + | [facility] | [address] | [place] [address] | [phone] | | HOSPITAL LABORATORY | | | [...] Medical | | | | | Director [address] | | | | | [facility] | | | | | [facility] | | | | | MICK SIDDIQUI | | | | | [address] [address] | | | | | #[id number] | | | + + + + [...] + + + | REFERENCE LAB | [address] | [place], [place] | | | [facility] - | | [address] | | | FRIEDA DOMINGUEZ | | [...] + + | [facility] | [address] | [place] [address] | [phone] | | HOSPITAL LABORATORY | | | [...] + + | [facility] | [address] | [place] [address] | [phone] | | HOSPITAL BLOOD BANK | | [...] + + | [facility] | [address] | [place] [address] | [phone] | | HOSPITAL LABORATORY | | | [...] + + | [facility] | [address] | [place] [address] | [phone] | | HOSPITAL LABORATORY | | | [...] + + | [facility] | [address] | [place] [address] | [phone] | | HOSPITAL LABORATORY | | | [...] | + + + + + | [facility] | [address] | [place] [address] | [phone] | | HOSPITAL BLOOD BANK | | [...] | [facility] | | | using the [employer] | | [facility]NOST[facility] - | | | [...] [facility] | | | | | [facility] | | | | | Darryl Smith M.D., | | | | | Ph.D., Laboratory | | | | | Director [address] | | | | | [facility] | | | | | [place], [place] | | | | | [address] CLIA | | | | | #[id number] | | | + + + + [...] + + + | REFERENCE LAB | [address] [facility] | [place], [place] | | | [facility] - | | [address] | | | FRIEDA DOMINGUEZ | | [...] | | | dysplasia is identified. The [place] System For Reporting Cervical | | | [...] in error, please call | | | [phone]. PERFORMING LABORATORY: Technical preparation was | | | performed by [facility], [address] [facility] | | | [place] [address] ([employer] Front Desk Clerk: Mando Gilbert D.O.; | | | CLIA#: [id number]). Professional interpretation was performed by | | | [facility], [facility] [address], | | | [place], [place] [address] ([employer] Front Desk Clerk: Eliezer Enriquez MD; CLIA# | | | [id number]). Diagnostician: Kenya BEST (ASCP), [facility] | | | Clip Baker Diagnostician: Eliezer Enriquez MD Pathologist | | | Electronically Signed 05/13/2018 | | + + + + +---------+ + + | Performing | Address | City/State/Unm Hospitalcode | Phone Number | | Organization [...] +---------+ | [place]ICA[place] | MEDICA | [id number] | Medica | [phone] | | [...] | Self [birth year] | Home: | [address] [facility] [address] | | M | al/Fam | | 1994 | [phone] | [place] [address] | | | kathi | | | [phone] | | + +--------+ +--------+ + +
--- OUTSIDE RECORDS SUMMARY | ~2018-06-21 | XMS | Encounter Summary ---
Demographics + + + | Address | [address] [facility] [address] | | | [place] [address] | + + + | Home Phone | | + + + | Preferred Language | Unknown | + + + | Marital Status | Single | + + + | Restorationism Affiliation | 1013 | + + + | Race | Unknown | + + + | Ethnic Group | Unknown | + + + Author + + + | Author | [facility] | | | and Stevenana | + + + | Organization | [facility] | | | and [...] 2LA | | | | | [place] [address] | | + + + + + | Alyx Montero | ECON | Unknown | | + + + + + | Tae Montero | ECON | Unknown | | + + + + + Care Team Providers + +------+ + | Care Coal Trimmer Name | Role | Phone | + [...] Advice Only | | 2018 | | [facility] | MD [address] | | | | | [address] | [address] | | | | | [address], | [place], [place] | | | | | [place] [address] | [address] | | | | | [phone] | | | | | | | [...] [place] | | | | | | [address] | | | | | | [phone] | | | | | | | | +--------+ + + + + | 11/25/ | Hospital | Obstetrics | Jacobo Haq | | | 2019 | Encounter | | MD [address] | | | | | | [address] | | | | | | [place] | | | | | | [address] | | | | | | [phone] | | | | | | | | +--------+ + + + + as of this encounter Visit Diagnoses Not on filein this encounter"
--- OUTSIDE RECORDS SUMMARY | ~2018-06-21 | XMS | Encounter Summary ---
Demographics + + + | Address | [address] [facility] [address] | | | [place] [address] | + + + | Home Phone | | + + + | Preferred Language | Unknown | + + + | Marital Status | Single | + + + | Judaism Affiliation | 1013 | + + + | Race | Unknown | + + + | Ethnic Group | Unknown | + + + Author + + + | Author | [facility] | | | and Stevenana | + + + | Organization | [facility] | | | and [...] 2LA | | | | | [place] [address] | | + + + + + | Alyx Montero | ECON | Unknown | | + + + + + | Tae Montero | ECON | Unknown | | + + + + + Care Team Providers + +------+ + | Care Apprentice Cosmetologist Name | Role | Phone | + +------+ + | No, Physician | PCP | Unavailable | + +------+ + Reason for Visit + + + | Reason | Comments | + + + | Referral | | + + + Encounter Details +--------+ + + + + | Date | Type | Department | Care Team | Description | +--------+ + + + + | 06/15/ | Telephone | [facility] [facility] | Jacobo Haq | Referral | | 2018 | | [facility] | MD [address] | | | | | [address] | [address] | | | | | [address], | [facility] [place] | | | | | [place] [address] | [address] | | | | | [phone] | [phone] | | | | | | | [...] [place] | | | | | | [address] | | | | | | [phone] | | | | | | | | +--------+ + + + + | 11/25/ | Hospital | Obstetrics | Jacobo Haq | | | 2019 | Encounter | | MD Rhoda Palacio | | | | | | [address] | | | | | | [place] | | | | | | [address] | | | | | | [phone] | | | | | | | | +--------+ + + + + as of this encounter Visit Diagnoses Not on filein this encounter"
--- OUTSIDE RECORDS SUMMARY | ~2018-06-21 | XMS | Encounter Summary ---
Demographics + + + | Address | [address] [facility] [address] | | | [place] [address] | + + + | Home Phone | | + + + | Preferred Language | Unknown | + + + | Marital Status | Single | + + + | Methodist Affiliation | 1013 | + + + | Race | Unknown | + + + | Ethnic Group | Unknown | + + + Author + + + | Author | [facility] | | | and [place]ana | + + + | Organization | [facility] | | | and [place] | + + + | Address | Unknown | + + + | Phone | Unavailable | + + + Support + + + + + | Name | Relationship | Address | Phone | + + + + + | Ritesh Guerra | ECON | [address] | | | | | [place] [address] | | + + + + + | Alyx Montero | ECON | Unknown | | + + + + + | Tae Montero | ECON | Unknown | | + + + + + Care Team Providers + +------+ + | Care Studio Potter Name | Role | Phone | + [...] | Referral | | 2018 | | [facility] | MD [address] | | | | | [address] | [address] | | | | | [address], | [facility], [place] | | | | | [place] [address] | [address] | | | | | [phone] | | | | | | | [...] [place] | | | | | | [address] | | | | | | [phone] | | | | | | | | +--------+ + + + + | 11/25/ | Hospital | Obstetrics | Jacobo Haq | | | 2019 | Encounter | | MD Rhoda Palacio | | | | | | [address] | | | | | | [place] | | | | | | [address] | | | | | | [phone] | | | | | | | | +--------+ + + + + as of this encounter Visit Diagnoses Not on filein this encounter"
== END 2018-06-21 11:02 | disposition home or self-care (01) ==
LOC: ED 09:40
DX: S93.402A Sprain of unspecified ligament of left ankle, initial encounter (principal); X58.XXXA Exposure to other specified factors, initial encounter; Z88.5 Allergy status to narcotic agent
CPT/HCPCS: 73610; 99283